=== PATIENT | male | born 1995 | race Caucasian/White ===

== ENCOUNTER 2017-08-15 14:37 | Emergency (ER) | payer BC, OTHER ==
[~2017-08-15] VITALS: Ht 182.9 cm; Wt 76.2 kg
[2017-08-15] MEDS ORDERED: KETOROLAC 30 MG/ML VIAL IVP STA (14:44)
[2017-08-15] MEDS ORDERED: NS IV 1000 ML 1,000 ML IV SCH (14:44)
[2017-08-15] MEDS ORDERED: ONDANSETRON 4 MG/2 ML (SDV) Z0FRAN IVP ONE (14:45)
[2017-08-15 14:55] LABS: BASOPHILS # (AUTO) 0.1 10^3/uL (0.0-0.1); BASOPHILS % (AUTO) 0 % (0-10); EOSINOPHILS # (AUTO) 0.3 10^3/uL (0.0-0.3); EOSINOPHILS % (AUTO) 2 % (0-10); HEMATOCRIT 44 % (40-54); HEMOGLOBIN 15.4 G/DL (13.3-17.7); LYMPHOCYTES # (AUTO) 2.5 X 10^3 (1.0-4.0); LYMPHOCYTES % (AUTO) 20 % (12-44); MEAN CORPUSCULAR HEMOGLOBIN 30 PG (25-34); MEAN CORPUSCULAR HGB CONC 35 G/DL (32-36); MEAN CORPUSCULAR VOLUME 85 FL (80-99); MEAN PLATELET VOLUME 10.9 FL (7.4-10.4); MONOCYTES % (AUTO) 8 % (0-12); NEUTROPHILS # (AUTO) 8.6 X 10^3 (1.8-7.8); NEUTROPHILS % (AUTO) 70 % (42-75); PLATELET COUNT 205 10^3/uL (130-400); RED BLOOD COUNT 5.18 10^6/uL (4.35-5.85); RED CELL DISTRIBUTION WIDTH 12.7 % (10.0-14.5); WHITE BLOOD COUNT 12.4 10^3/uL (4.3-11.0)
[2017-08-15] MEDS ORDERED: morphine INJ 10 MG/ML 1ML (SYR OR VIAL) IVP STA (15:04)
[2017-08-15 15:15] LABS: ALANINE AMINOTRANSFERASE 23 U/L (0-55); ALBUMIN 4.6 GM/DL (3.2-4.5); ALKALINE PHOSPHATASE 88 U/L (40-136); BILIRUBIN,TOTAL 0.7 MG/DL (0.1-1.0); BUN/CREATININE RATIO 16; CALCIUM 9.9 MG/DL (8.5-10.1); CARBON DIOXIDE 26 MMOL/L (21-32); CHLORIDE 103 MMOL/L (98-107); CREATININE SERUM 1.07 MG/DL (0.60-1.30); GFR ESTIMATED > 60; GLUCOSE 112 MG/DL (70-105); POTASSIUM 4.3 MMOL/L (3.6-5.0); SODIUM 138 MMOL/L (135-145); TOTAL PROTEIN 7.2 GM/DL (6.4-8.2)
[2017-08-15] MEDS ORDERED: CATHETER FLUSH 10 ML SYR IV PRN (15:15)
[2017-08-15] MEDS ORDERED: IOHEXOL 350 MG/ML 100 ML (OMNIPAQUE 350) VIAL IV ONE (15:15)
[2017-08-15] MEDS ORDERED: NS 250 ML (IVPB) BAG IV ONE (15:15)
--- NOTE | 2017-08-15 15:33 | ED GU-Male ---
General Chief Complaint: Abdominal/GI Problems Stated Complaint: STOMACH PAIN/KIDNEY STONES Nursing Triage Note: AMB TO ROOM REPORTS FOR LAST 2 DAYS HAS HAS URINARY SYMPTOMS ONSET TODAY OF R LOWER ABD PAIN. Source: patient Exam Limitations: no limitations History of Present Illness Date Seen by Provider: Aug 15, 2017 Time Seen by Provider: 14:45 Initial Comments 22-year-old male patient presents to the emergency department with complaints of a 2 day onset of right lower quadrant pain and urinary hesitancy. Pain has progressively gotten worse over the last 2 days. Patient reports chills without known fever. Denies low back pain or hematuria. 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, single partner Modifying Factors: Worsens With Movement, Worsens With Palpation Allergies and Home Medications Allergies Coded Allergies: No Known Drug Allergies (Unverified , 08/15/17) Home Medications Ciprofloxacin HCl 500 Mg Tablet, 500 MG PO BID Prescribed by: BLANQUITA COOPER on 08/15/171909 Hydrocodone/Acetaminophen 1 Each Tablet, 1 EACH PO Q4H PRN for pain Prescribed by: BLANQUITA COOPER on 08/15/171926 Ondansetron 8 Mg Tab.rapdis, 8 MG PO Q6H PRN for NAUSEA/VOMITING-1ST LINE Prescribed by: BLANQUITA COOPER on 08/15/171909 Phenazopyridine HCl 200 Mg Tablet, 1 TAB PO Q8H PRN for SPASMS Prescribed by: BLANQUITA COOPER on 08/15/171909 Tamsulosin HCl 0.4 Mg Cap, 0.4 MG PO DAILY Prescribed by: BLANQUITA COOPER on 08/15/171909 Patient Home Medication List Home Medication List Reviewed: Yes Constitutional: chills, No fever EENTM: no symptoms reported Respiratory: no symptoms reported Cardiovascular: no symptoms reported Gastrointestinal: abdominal pain (RLQ), No constipation, No diarrhea, No melena , nausea, No vomiting Genitourinary: denies burning, denies dysuria, frequency, denies flank pain, denies hematuria, pain, other (hesitancy) Musculoskeletal: No back pain Skin: no symptoms reported Psychiatric/Neurological: No Symptoms Reported All Other Systemes Reviewed Negative Unless Noted: Yes (Negative excepted noted.) Past Jcekfen-Jziirj-Jqifby Hx Patient Social History Alcohol Use: Denies Use Recreational Drug Use: No Smoking Status: Never a Smoker Recent Foreign Travel: No Contact w/Someone Who Travel: No Recent Infectious Disease Expo: No Surgeries History of Surgeries: No Respiratory History of Respiratory Disorde: No Cardiovascular History of Cardiac Disorders: No Neurological History of Neurological Disord: No Genitourinary History of Genitourinary Disor: No Gastrointestinal History of Gastrointestinal Di: No Musculoskeletal History of Musculoskeletal Dis: No Endocrine History of Endocrine Disorders: No Reviewed Nursing Assessment Reviewed/Agree w Nursing PMH: Yes Family Medical History Significant Family History: No Pertinent Family Hx Physical Exam Vital Signs Vital Signs - First Documented 08/15/17 08/15/17 14:40 19:49 Temp 98.7 Pulse 60 Resp 18 B/P (MAP) 132/69 (90) Pulse Ox 99 O2 Delivery Room Air Capillary Refill : Less Than 3 Seconds General Appearance: WD/WN, no apparent distress HEENT: PERRL/EOMI, pharynx normal Neck: supple, normal inspection Cardiovascular: normal peripheral pulses, regular rate, rhythm, no edema, no murmur Respiratory: lungs clear, normal breath sounds, no respiratory distress, no accessory muscle use Gastrointestinal: normal bowel sounds, soft, no organomegaly, No distended, guarding (generalized involuntary guarding), No rebound, tenderness ( generalized tenderness) Back: normal inspection, no CVA tenderness, no vertebral tenderness Extremities: no pedal edema, normal capillary refill Neurologic/Psychiatric: alert, normal mood/affect, oriented x 3 Skin: normal color, warm/dry Progress/Results/Core Measures Suspected Sepsis Recent Fever Within 48 Hours: No Infection Criteria Present: None New/Unexplained Altered Menta: No Sepsis Screen: No Definite Risk Sepsis Diagnosis: SIRS Temperature:98.7 Pulse: 60 Respiratory Rate: 18 Laboratory Tests 08/15/17 14:45: White Blood Count 12.4H Blood Pressure 132 /69 Mean: 90 Laboratory Tests 08/15/17 14:45: Creatinine 1.07, Platelet Count 205, Total Bilirubin 0.7 Results/Orders Lab Results Laboratory Tests Test 08/15/17 14:45 08/15/17 16:01 08/15/17 16:05 Range/Units White Blood Count 12.4 H 4.3-11.0 10^3/uL Red Blood Count 5.18 4.35-5.85 10^6/uL Hemoglobin 15.4 13.3-17.7 G/DL Hematocrit 44 40-54 % Mean Corpuscular Volume 85 80-99 FL Mean Corpuscular Hemoglobin 30 25-34 PG Mean Corpuscular Hemoglobin Concent 35 32-36 G/DL Red Cell Distribution Width 12.7 10.0-14.5 % Platelet Count 205 130-400 10^3/uL Mean Platelet Volume 10.9 H 7.4-10.4 FL Neutrophils (%) (Auto) 70 42-75 % Lymphocytes (%) (Auto) 20 12-44 % Monocytes (%) (Auto) 8 0-12 % Eosinophils (%) (Auto) 2 0-10 % Basophils (%) (Auto) 0 0-10 % Neutrophils # (Auto) 8.6 H 1.8-7.8 X 10^3 Lymphocytes # (Auto) 2.5 1.0-4.0 X 10^3 Monocytes # (Auto) 1.0 0.0-1.0 X 10^3 Eosinophils # (Auto) 0.3 0.0-0.3 10^3/uL Basophils # (Auto) 0.1 0.0-0.1 10^3/uL Sodium Level 138 135-145 MMOL/L Potassium Level 4.3 3.6-5.0 MMOL/L Chloride Level 103 98-107 MMOL/L Carbon Dioxide Level 26 21-32 MMOL/L Anion Gap 9 5-14 MMOL/L Blood Urea Nitrogen 17 7-18 MG/DL Creatinine 1.07 0.60-1.30 MG/DL Estimat Glomerular Filtration Rate > 60 BUN/Creatinine Ratio 16 Glucose Level 112 H 70-105 MG/DL Calcium Level 9.9 8.5-10.1 MG/DL Total Bilirubin 0.7 0.1-1.0 MG/DL Aspartate Amino Transf (AST/SGOT) 19 5-34 U/L Alanine Aminotransferase (ALT/SGPT) 23 0-55 U/L Alkaline Phosphatase 88 40-136 U/L C-Reactive Protein High Sensitivity 1.29 H 0.00-0.50 MG/DL Total Protein 7.2 6.4-8.2 GM/DL Albumin 4.6 H 3.2-4.5 GM/DL Monoscreen NEGATIVE NEGATIVE Urine Color YELLOW Urine Clarity SLIGHTLY CLOUDY Urine pH 7 5-9 Urine Specific [place] 1.010 L 1.016-1.022 Urine Protein 2+ H NEGATIVE Urine Glucose (UA) NEGATIVE NEGATIVE Urine Ketones 2+ H NEGATIVE Urine Nitrite NEGATIVE NEGATIVE Urine Bilirubin NEGATIVE NEGATIVE Urine Urobilinogen 1 NORMAL MG/DL Urine Leukocyte Esterase 1+ H NEGATIVE Urine RBC (Auto) 3+ H NEGATIVE Urine RBC 5-10 H /HPF Urine WBC RARE /HPF Urine Squamous Epithelial Cells NONE /HPF Urine Crystals NONE /LPF Urine Bacteria NEGATIVE /HPF Urine Casts NONE /LPF Urine Mucus LARGE H /LPF Urine Culture Indicated NO Urine Opiates Screen NEGATIVE NEGATIVE Urine Oxycodone Screen NEGATIVE NEGATIVE Urine Methadone Screen NEGATIVE NEGATIVE Urine Propoxyphene Screen NEGATIVE NEGATIVE Urine Barbiturates Screen NEGATIVE NEGATIVE Ur Tricyclic Antidepressants Screen NEGATIVE NEGATIVE Urine Phencyclidine Screen NEGATIVE NEGATIVE Urine Amphetamines Screen NEGATIVE NEGATIVE Urine Methamphetamines Screen NEGATIVE NEGATIVE Urine Benzodiazepines Screen NEGATIVE NEGATIVE Urine Cocaine Screen NEGATIVE NEGATIVE Urine Cannabinoids Screen POSITIVE H NEGATIVE Serum Alcohol < 10 <10 MG/DL My Orders Orders - BLANQUITA COOPER PA Ua Culture If Indicated (08/15/17 14:42) Cbc With Automated Diff (08/15/17 14:44) Comprehensive Metabolic Panel (08/15/17 14:44) Hs C Reactive Protein (08/15/17 14:44) Ua Culture If Indicated (08/15/17 14:44) Saline Lock/Iv-Start (08/15/17 14:44) Ns Iv 1000 Ml (Sodium Chloride 0.9%) (08/15/17 14:44) Ondansetron Injection (Zofran Injectio (08/15/17 14:45) Ketorolac Injection (Toradol Injection) (08/15/17 14:44) Morphine Injection (Morphine Injection (08/15/17 15:04) Iohexol Injection (Omnipaque 350 Mg/Ml 1 (08/15/17 15:15) Sodium Chloride Flush (Catheter Flush Sy (08/15/17 15:15) Ns (Ivpb) (Sodium Chloride 0.9%) (08/15/17 15:15) Pharmacy Communication (Pharmacy Communi (08/15/17 15:06) Ct Abd/Pelv W (Appendicitis) (08/15/17 15:45) Alcohol (08/15/17 16:02) Drug Screen Stat (Urine) (08/15/17 16:02) Hepatitis Panel Acute (08/15/17 17:00) Monotest (08/15/17 17:00) Us Abdomen Complete 90112 (08/15/17 17:00) Rx-Hydrocodone/Apap 5-325 Mg (Rx-Vicodin (08/15/17 19:45) Medications Given in ED Current Medications Medications Dose Ordered Sig/Yvonne Route Start Time Stop Time Status Last Admin Dose Admin Acetaminophen/ Hydrocodone Bitart 1 ea Q4H PRN PO 08/15/17 19:45 08/15/17 19:45 DC 08/15/17 19:44 1 EA Iohexol 100 ml ONCE ONCE IV 08/15/17 15:15 08/15/17 15:16 DC 08/15/17 15:58 100 ML Ondansetron HCl 4 mg ONCE ONCE IVP 08/15/17 14:45 08/15/17 14:46 DC 08/15/17 14:53 4 MG Sodium Chloride 10 ml NEEDED PRN IV 08/15/17 15:15 08/15/17 19:45 DC 08/15/17 15:58 10 ML Sodium Chloride 250 ml ONCE ONCE IV 08/15/17 15:15 08/15/17 15:16 DC 08/15/17 15:58 80 ML Vital Signs/I&O Vital Sign - Last 12Hours 08/15/17 08/15/17 14:40 19:49 Temp 98.7 98.2 Pulse 60 68 Resp 18 18 B/P (MAP) 132/69 (90) 137/73 (90) Pulse Ox 99 100 O2 Delivery Room Air Intake and Output 08/16/17 00:00 Intake Total 1000 ml Balance 1000 ml Capillary Refill : Less Than 3 Seconds Blood Pressure Mean: 90 Diagnostic Imaging Diagonstic Imaging: CT Plain Films/CT/US/NM/MRI: abdomen, pelvis Comments FINDINGS: The visualized lung bases are clear. The liver demonstrates an appearance suggestive of periportal edema. There is no significant biliary dilatation evident. Consider correlation with LFTs. The spleen demonstrates no focal abnormality. Pancreas is unremarkable. There is no adrenal mass. Kidneys enhance normally and appear nonobstructed. The ureters appear normal in caliber. There is a nonobstructive 4 mm calculus within the upper calyx of the right kidney. There is no evidence of free fluid. There is no abscess. No pathologically enlarged lymph nodes are evident. Urinary bladder unremarkable. The small and large bowel are normal in caliber without evidence of obstruction. The appendix is well visualized and appears normal. There are, however, multiple small prominent lymph nodes within the right lower quadrant. There is no free fluid or abscess. IMPRESSION: 1. Multiple small mesenteric lymph nodes are present in the right lower quadrant which may reflect mesenteric adenitis. The appendix, itself, appears normal. 2. Abnormal appearance of the liver with findings of periportal edema. Consider correlation with LFTs. Right upper quadrant ultrasound may also be useful. There is no definitive stone within the gallbladder or evidence of definitive biliary dilatation. Dictated by: Dictated on workstation # [id number] Reviewed: Reviewed by Me (radiology report reviewed by me) Diagonstic Imaging: Ultrasound Plain Films/CT/US/NM/MRI: abdomen Comments FINDINGS: LIVER: The visualized portions of the liver is normal in shape and echogenicity without focal lesions. The previously seen appearance of periportal edema is not well visualized on this ultrasound exam and is better seen on the comparison CT scan. The liver measures 14.4 cm in craniocaudal dimension. GALLBLADDER: The gallbladder is normal in size, shape and wall thickness without stones, sludge, or masses. There is no sonographic Curtis sign. BILE DUCTS: There is no evidence of intra- or extra-hepatic biliary dilatation. The common duct measured a maximum of 3.7 mm in diameter. PANCREAS: Portions of the pancreatic head are obscured by overlying bowel gas. Otherwise, the remaining visualized portions of the pancreas has normal size, shape, and echogenicity without focal lesions. SPLEEN: The spleen has normal echogenicity and configuration. The spleen measures 11.7 cm. ABDOMINAL VASCULATURE: Visualized portions of the abdominal aorta demonstrate smooth contours and are normal in caliber. KIDNEYS: Both kidneys are normal in size, shape, echogenicity and cortical thickness without hydronephrosis, stones, or focal lesions with right and left kidneys measuring 9.6 cm and 9.3 cm in their craniocaudal dimensions, respectively. There is no abdominal ascites. IMPRESSION : 1: Incomplete visualization of the pancreas. If there is clinical concern for pancreatic abnormality, serology tests may better evaluate. 2: The areas concerning for periportal edema are not seen on this ultrasound exam and is better seen on comparison CT scan. The liver is unremarkable as visualized on this exam. Liver function serology tests may help better evaluate. 3: The remainder of the abdominal ultrasound is unremarkable. Dictated by: Dictated on workstation # [id number] Reviewed: Reviewed by Me (radiology report reviewed by me) Departure Communication (Admissions) Progress Notes Patient seen and evaluated. Initial labs obtained and CT abdomen/pelvis with contrast ordered as patient shows generalized abdominal tenderness with greatest tenderness in the right lower quadrant. Patient however was concerned about missing a kidney stone on the CT scan with contrast. Patient is negative for CVA tenderness and is noted to have generalized abdominal tenderness. History is not classic for kidney stone. I discussed this with the patient. Patient is agreeable to CT abdomen and pelvis with contrast. PeriPortal edema noted on CT scan without appreciable stones of the gallbladder. 1 stone noted in the right upper pole of the kidney without ureteral stone. Patient reports feeling much better at this time. I have discussed findings of the diagnostic study and laboratory findings with the patient as well as recommendations for abdominal ultrasound. We'll proceed with the ultrasound at this time. 1855 all laboratory findings and diagnostic study findings discussed with Dr. John. Dr. John recommends discharge to home with follow-up as an outpatient with his PCP for recheck and possible need for repeat CT scan as an outpatient. Reports findings on CT scan most likely related to a viral infection. Also plan on obtaining an acute hepatitis panel to rule out this as a cause of periportal edema. Ultrasound findings and recommendations by Dr. John discussed with the patient. Patient reports being asymptomatic at this time. Abdomen is soft, nontender, positive bowel sounds, flat. Plan for discharge to home with follow-up as an outpatient with his PCP or [facility] Patient to call for appointment time. All return precautions were discussed with the patient as described in the discharge instructions of this report. Patient verbalizes understanding and agrees with the treatment plan. Patient case discussed with Alexis Salas, he agrees with the plan of care. Impression Impression: Primary Impression: Mesenteric adenitis Additional Impressions: periportal edema Hematuria Qualified Codes: R31.9 - Hematuria, unspecified Disposition: HOME, SELF-CARE Condition: Improved Departure-Patient Inst. Decision time for Depature: 19:05 Referrals: NO,LOCAL PHYSICIAN (PCP) Primary Care Physician CARMENZA CINTRON MD Patient Instructions: Acute Abdomen (Belly Pain), Adult (DC), Mesenteric Lymphadenitis (DC) Add. Discharge Instructions: All discharge instructions reviewed with patient and/or family. Voiced understanding. Medications as instructed. Ibuprofen 800 mg by mouth every 8 hours as needed for pain. Drink plenty of fluids. [place], low-fat diet. No alcohol or tylenol. Follow-up with your family practitioner this week for recheck as an outpatient and repeat labs/urinalysis. Follow-up with Dr. Cintron if you continue to have blood in your urine. Return to the emergency department for worsened symptoms, fever, vomiting, vomiting blood, rectal bleeding, abdominal swelling, inability to urinate, or any other concerns. Scripts Hydrocodone/Acetaminophen (Hydrocodone-Acetamin 5-325 mg) 1 Each Tablet 1 EACH PO Q4H Y for pain, #10 TAB 0 Refills Prov: BLANQUITA COOPER 08/15/17 Tamsulosin HCl (Flomax) 0.4 Mg Cap 0.4 MG PO DAILY, #10 CAP 0 Refills Prov: BLANQUITA COOPER 08/15/17 Ciprofloxacin HCl (Ciprofloxacin HCl) 500 Mg Tablet 500 MG PO BID, #14 TAB 0 Refills Prov: BLANQUITA COOPER 08/15/17 Phenazopyridine HCl (Pyridium) 200 Mg Tablet 1 TAB PO Q8H Y for SPASMS, #14 TAB 0 Refills Prov: BLANQUITA COOPER 08/15/17 Ondansetron (Ondansetron Odt) 8 Mg Tab.rapdis 8 MG PO Q6H Y for NAUSEA/VOMITING-1ST LINE, #10 TAB 0 Refills Prov: BLANQUITA COOPER 08/15/17 Work/School Note: Local [employer]ing BLANQUITA COOPER Aug 15, 2017 15:33
[2017-08-15 16:13] LABS: BILIRUBIN,URINE NEGATIVE (NEGATIVE); CLARITY,URINE SLIGHTLY CLOUDY; COLOR,URINE YELLOW; GLUCOSE, URINE (UA) NEGATIVE (NEGATIVE); KETONES,URINE 2+ (NEGATIVE); LEUKOCYTE ESTERASE ,URINE 1+ (NEGATIVE); NITRITE,URINE NEGATIVE (NEGATIVE); PH,URINE 7 (5-9); PROTEIN,URINE 2+ (NEGATIVE); UROBILINOGEN,URINE 1 MG/DL (NORMAL)
--- NOTE | 2017-08-15 16:15 | Diagnostic Imaging Report ---
PROCEDURE: CT abdomen and pelvis with contrast, rule out appendicitis. TECHNIQUE: Multiple contiguous axial images were obtained through the abdomen and pelvis after the administration of intravenous contrast. INDICATION: Elevated white blood cell count with right lower quadrant pain. Reported hematuria. FINDINGS: The visualized lung bases are clear. The liver demonstrates an appearance suggestive of periportal edema. There is no significant biliary dilatation evident. Consider correlation with LFTs. The spleen demonstrates no focal abnormality. Pancreas is unremarkable. There is no adrenal mass. Kidneys enhance normally and appear nonobstructed. The ureters appear normal in caliber. There is a nonobstructive 4 mm calculus within the upper calyx of the right kidney. There is no evidence of free fluid. There is no abscess. No pathologically enlarged lymph nodes are evident. Urinary bladder unremarkable. The small and large bowel are normal in caliber without evidence of obstruction. The appendix is well visualized and appears normal. There are, however, multiple small prominent lymph nodes within the right lower quadrant. There is no free fluid or abscess. IMPRESSION: 1. Multiple small mesenteric lymph nodes are present in the right lower quadrant which may reflect mesenteric adenitis. The appendix, itself, appears normal. 2. Abnormal appearance of the liver with findings of periportal edema. Consider correlation with LFTs. Right upper quadrant ultrasound may also be useful. There is no definitive stone within the gallbladder or evidence of definitive biliary dilatation. Dictated by: Dictated on workstation # [id number]
[2017-08-15 16:27] LABS: AMPHETAMINE SCREEN, URINE NEGATIVE (NEGATIVE); BENZODIAZEPINES SCREEN URINE NEGATIVE (NEGATIVE); CANNABINOID SCREEN, URINE POSITIVE (NEGATIVE); COCAINE SCREEN URINE NEGATIVE (NEGATIVE)
[2017-08-15 16:28] LABS: BARBITURATE SCREEN URINE NEGATIVE (NEGATIVE); METHADONE STAT NEGATIVE (NEGATIVE); METHAMPHETAMINE SCREEN URINE S NEGATIVE (NEGATIVE); OPIATE SCREEN URINE NEGATIVE (NEGATIVE); OXYCODONE STAT NEGATIVE (NEGATIVE); PROPOXYPHENE STAT NEGATIVE (NEGATIVE); TRICYCLIC ANTIDEPRESSANTS SCRE NEGATIVE (NEGATIVE)
[2017-08-15 16:30] LABS: BACTERIA,URINE NEGATIVE /HPF; WBC,URINE RARE /HPF
--- NOTE | 2017-08-15 18:01 | Diagnostic Imaging Report ---
CLINICAL INDICATION: Patient with abdominal pain. COMPARISON: CT scan of the abdomen and pelvis with contrast dated 08/15/2017. FINDINGS: LIVER: The visualized portions of the liver is normal in shape and echogenicity without focal lesions. The previously seen appearance of periportal edema is not well visualized on this ultrasound exam and is better seen on the comparison CT scan. The liver measures 14.4 cm in craniocaudal dimension. GALLBLADDER: The gallbladder is normal in size, shape and wall thickness without stones, sludge, or masses. There is no sonographic Curtis sign. BILE DUCTS: There is no evidence of intra- or extra-hepatic biliary dilatation. The common duct measured a maximum of 3.7 mm in diameter. PANCREAS: Portions of the pancreatic head are obscured by overlying bowel gas. Otherwise, the remaining visualized portions of the pancreas has normal size, shape, and echogenicity without focal lesions. SPLEEN: The spleen has normal echogenicity and configuration. The spleen measures 11.7 cm. ABDOMINAL VASCULATURE: Visualized portions of the abdominal aorta demonstrate smooth contours and are normal in caliber. KIDNEYS: Both kidneys are normal in size, shape, echogenicity and cortical thickness without hydronephrosis, stones, or focal lesions with right and left kidneys measuring 9.6 cm and 9.3 cm in their craniocaudal dimensions, respectively. There is no abdominal ascites. IMPRESSION: 1: Incomplete visualization of the pancreas. If there is clinical concern for pancreatic abnormality, serology tests may better evaluate. 2: The areas concerning for periportal edema are not seen on this ultrasound exam and is better seen on comparison CT scan. The liver is unremarkable as visualized on this exam. Liver function serology tests may help better evaluate. 3: The remainder of the abdominal ultrasound is unremarkable. Dictated by: Dictated on workstation # [id number]
[2017-08-15] MEDS ORDERED: PHEN-640 PO (19:10)
[2017-08-15] MEDS ORDERED: ONDA8TAB13 PO (19:10)
[2017-08-15] MEDS ORDERED: TAMS0.4C98 PO (19:10)
[2017-08-15] MEDS ORDERED: CIPR500T4 PO (19:10)
[2017-08-15] MEDS ORDERED: HYDR-3812 PO (19:27)
[2017-08-15] MEDS ORDERED: RX-HYDROCODONE/APAP 5/325 MG #4 TAB PK PO PRN (19:45)
[2017-08-15 19:49] VITALS: BP 137/73
[2017-08-17 16:28] LABS: HEPATITIS C ANTIBODY C Non-Reactive (Non-Reactive)
== END 2017-08-15 19:44 | disposition home or self-care (01) ==
LOC: ER 14:39
DX: I88.0 Nonspecific mesenteric lymphadenitis (principal); R60.0 Localized edema; R31.9 Hematuria, unspecified
CPT/HCPCS: 36415; 74177; 76700; 80053; 80074; 80306; 80320; 81000; 85025; 86141; 86308

== ENCOUNTER 2019-04-22 02:07 | Emergency (ER) | payer BC ==
[~2019-04-22] VITALS: Ht 182.8 cm; Wt 86.4 kg
[~2019-04-22 02:07] MED LIST: CIPR500T4 PO; HYDR-3812 PO; ONDA8TAB13 PO; PHEN-640 PO; TAMS0.4C98 PO
[2019-04-22 02:44] LABS: BASOPHILS % (AUTO) 0 % (0-10); EOSINOPHILS # (AUTO) 0.1 10^3/uL (0.0-0.3); EOSINOPHILS % (AUTO) 1 % (0-10); HEMATOCRIT 40 % (40-54); HEMOGLOBIN 13.8 G/DL (13.3-17.7); LYMPHOCYTES # (AUTO) 1.4 X 10^3 (1.0-4.0); LYMPHOCYTES % (AUTO) 8 % (12-44); MEAN CORPUSCULAR HEMOGLOBIN 29 PG (25-34); MEAN CORPUSCULAR HGB CONC 35 G/DL (32-36); MEAN CORPUSCULAR VOLUME 84 FL (80-99); MEAN PLATELET VOLUME 10.2 FL (7.4-10.4); MONOCYTES # (AUTO) 0.9 X 10^3 (0.0-1.0); MONOCYTES % (AUTO) 5 % (0-12); NEUTROPHILS # (AUTO) 15.6 X 10^3 (1.8-7.8); NEUTROPHILS % (AUTO) 87 % (42-75); PLATELET COUNT 223 10^3/uL (130-400); RED CELL DISTRIBUTION WIDTH 12.7 % (10.0-14.5)
[2019-04-22 02:46] LABS: BILIRUBIN,URINE NEGATIVE (NEGATIVE); CLARITY,URINE CLEAR; COLOR,URINE YELLOW; GLUCOSE, URINE (UA) NEGATIVE (NEGATIVE); KETONES,URINE TRACE (NEGATIVE); LEUKOCYTE ESTERASE ,URINE NEGATIVE (NEGATIVE); NITRITE,URINE NEGATIVE (NEGATIVE); PROTEIN,URINE NEGATIVE (NEGATIVE)
[2019-04-22 03:00] LABS: AMPHETAMINE SCREEN, URINE NEGATIVE (NEGATIVE); BACTERIA,URINE FEW /HPF; BARBITURATE SCREEN URINE NEGATIVE (NEGATIVE); BENZODIAZEPINES SCREEN URINE NEGATIVE (NEGATIVE); CANNABINOID SCREEN, URINE POSITIVE (NEGATIVE); COCAINE SCREEN URINE NEGATIVE (NEGATIVE); METHADONE STAT NEGATIVE (NEGATIVE); METHAMPHETAMINE SCREEN URINE S NEGATIVE (NEGATIVE); OPIATE SCREEN URINE NEGATIVE (NEGATIVE); OXYCODONE STAT NEGATIVE (NEGATIVE); PROPOXYPHENE STAT NEGATIVE (NEGATIVE); SQUAMOUS EPITHELIAL CELL,UR 0-2 /HPF; TRICYCLIC ANTIDEPRESSANTS SCRE NEGATIVE (NEGATIVE)
[2019-04-22 03:05] LABS: ALANINE AMINOTRANSFERASE 26 U/L (0-55); ALBUMIN 4.9 GM/DL (3.2-4.5); ALKALINE PHOSPHATASE 71 U/L (40-136); AMYLASE 61 U/L (25-125); BILIRUBIN,TOTAL 0.6 MG/DL (0.1-1.0); BUN/CREATININE RATIO 14; CALCIUM 9.7 MG/DL (8.5-10.1); CARBON DIOXIDE 23 MMOL/L (21-32); CHLORIDE 101 MMOL/L (98-107); CREATININE SERUM 1.23 MG/DL (0.60-1.30); GFR ESTIMATED > 60; GLUCOSE 108 MG/DL (70-105); LIPASE 15 U/L (8-78); SODIUM 138 MMOL/L (135-145); TOTAL PROTEIN 7.1 GM/DL (6.4-8.2)
[2019-04-22] MEDS ORDERED: LACTATED RINGERS 1,000 ML IV ONE (03:41)
[2019-04-22] MEDS ORDERED: KETOROLAC 30 MG/ML VIAL IVP STA (03:41)
[2019-04-22] MEDS ORDERED: TAMSULOSIN 0.4 MG (FLOMAX) CAP PO SCH (03:45)
[2019-04-22] MEDS ORDERED: ONDA4TAB11 PO (03:48)
[2019-04-22] MEDS ORDERED: TAMS0.4C98 PO (03:48)
[2019-04-22] MEDS ORDERED: CIPR-225 PO (03:48)
[2019-04-22] MEDS ORDERED: HYDR-87 PO (03:48)
--- NOTE | 2019-04-22 03:48 | ED Abdominal Pain ---
General Chief Complaint: Abdominal/GI Problems Stated Complaint: ABD PAIN Nursing Triage Note: URINARY HESITANCY X2 WEEKS, RIGHT SIDED ABDOMINAL PAIN TONIGHT. Sepsis Screen: No Definite Risk Source of Information: Patient History of Present Illness Date Seen by Provider: Apr 22, 2019 Time Seen by Provider: 02:20 Initial Comments PT ARRIVES VIA POV FROM HOME STATES HE HAS BEEN HAVING DIFFICULTY URINATING FOR THE LAST FEW WEEKS C/O URGENCY, FREQUENCY, SMALL AMOUNTS, HAS TO STRAIN TO URINATE OCCASIONALLY HAS PAIN IN RIGHT LOWER BACK WHEN HE HAS TO STRAIN TO URINATE NO ACTUAL PAIN /BURNING ON URINATION NO FEVER TONIGHT, HE BEGAN HAVING PRESSURE IN RLQ. STATES HE COULDN'T GO TO SLEEP DUE TO PAIN HAD NAUSEA AND VOMITED X 1 A COUPLE OF HOURS AGO HAS NOT TAKEN ANYTHING FOR SYMPTOMS HAS NOT SOUGHT CARE UNTIL TODAY HAD SIMILAR IN THE PAST, AND WAS SEEN HERE 08/15/17 WORK UP SHOWED POSSIBLE MESENTERIC ADENITIS, HAD BLOOD IN URINE, AND WAS TOLD HE MIGHT HAVE A KIDNEY STONE, BUT CT SCAN DID NOT SHOW A STONE. DID NOT FOLLOW UP WITH UROLOGIST AT THAT TIME PT IS [employer] ST[employer] FROM [place], [place] Allergies and Home Medications Allergies Coded Allergies: No Known Drug Allergies (Unverified , 08/15/17) Home Medications Ciprofloxacin HCl 500 Mg Tablet, 500 MG PO BID Prescribed by: ZULEYMA WALTERS on 04/22/19347 Hydrocodone/Ibuprofen 1 Each Tablet, 1 EACH PO Q4H PRN for PAIN-MODERATE Prescribed by: ZULEYMA WALTERS on 04/22/19347 Ondansetron 4 Mg Tab.rapdis, 4 MG PO Q4H Prescribed by: ZULEYMA WALTERS on 04/22/19347 Tamsulosin HCl 0.4 Mg Cap, 0.4 MG PO DAILY Prescribed by: ZULEYMA WALTERS on 04/22/19347 Patient Home Medication List Home Medication List Reviewed: Yes Review of Systems Review of Systems Constitutional: no symptoms reported; No fever Respiratory: No Symptoms Reported Cardiovascular: No Symptoms Reported Gastrointestinal: See HPI, Abdominal Pain, Nausea, Vomiting Genitourinary: See HPI, Frequency, Flank Pain; Denies Hematuria; Urgency Musculoskeletal: see HPI, back pain Skin: no symptoms reported Psychiatric/Neurological: No Symptoms Reported Endocrine: No Symptoms Reported Hematologic/Lymphatic: No Symptoms Reported Past Ppiigbn-Cwwapz-Rtpejl Hx Patient Social History Alcohol Use: Regular Use Recreational Drug Use: Yes (DENIES, BUT UDS + FOR THC) Drug of Choice: DENIES, BUT UDS + FOR THC Smoking Status: Current Someday Smoker Type Used: Cigarettes 2nd Hand Smoke Exposure: No Recent Foreign Travel: No Contact w/Someone Who Travel: No Recent Infectious Disease Expo: No Recent Hopitalizations: No Physical Abuse: No Sexual Abuse: No Mistreated: No Fear: No Immunizations Up To Date Tetanus Booster (TDap): Unknown Seasonal Allergies Seasonal Allergies: No Past Medical History Surgeries: Yes Tonsillectomy Respiratory: No Cardiac: No Neurological: No Genitourinary: Yes Kidney Stones Gastrointestinal: No Musculoskeletal: No Endocrine: No HEENT: Yes (S/P TONSILLECTOMY) Tonsilitis Cancer: No Psychosocial: No Integumentary: No Blood Disorders: No Physical Exam Vital Signs Vital Signs - First Documented 04/22/19 02:13 Temp 36.8 Pulse 62 Resp 18 B/P (MAP) 158/97 (117) Pulse Ox 99 O2 Delivery Room Air Capillary Refill : Less Than 3 Seconds Height/Weight/BMI Height: 6'" Weight: 168lbs. oz. 76.178013xg; 25.00 BMI Method:Stated General Appearance: WD/WN, no apparent distress, other (WALKS UPRIGHT AND MOVES WITHOUT DIFFICULTY) Respiratory: normal breath sounds, no respiratory distress, no accessory muscle use Cardiovascular: regular rate, rhythm, no murmur Gastrointestinal: normal bowel sounds, soft, no organomegaly, no pulsatile mass; No distended, No guarding, No rebound; tenderness (MILD RLQ TENDERNESS); No hernia, No mass Extremities: normal inspection Back: no CVA tenderness Neurologic/Psychiatric: dehairer II-XII nml as tested, no motor/sensory deficits, alert, normal mood/affect, oriented x 3 Skin: normal color, warm/dry Progress/Results/Core Measures Results/Orders Lab Results Laboratory Tests Test 04/22/19 02:35 Range/Units White Blood Count 18.0 H 4.3-11.0 10^3/uL Red Blood Count 4.77 4.35-5.85 10^6/uL Hemoglobin 13.8 13.3-17.7 G/DL Hematocrit 40 40-54 % Mean Corpuscular Volume 84 80-99 FL Mean Corpuscular Hemoglobin 29 25-34 PG Mean Corpuscular Hemoglobin Concent 35 32-36 G/DL Red Cell Distribution Width 12.7 10.0-14.5 % Platelet Count 223 130-400 10^3/uL Mean Platelet Volume 10.2 7.4-10.4 FL Neutrophils (%) (Auto) 87 H 42-75 % Lymphocytes (%) (Auto) 8 L 12-44 % Monocytes (%) (Auto) 5 0-12 % Eosinophils (%) (Auto) 1 0-10 % Basophils (%) (Auto) 0 0-10 % Neutrophils # (Auto) 15.6 H 1.8-7.8 X 10^3 Lymphocytes # (Auto) 1.4 1.0-4.0 X 10^3 Monocytes # (Auto) 0.9 0.0-1.0 X 10^3 Eosinophils # (Auto) 0.1 0.0-0.3 10^3/uL Basophils # (Auto) 0.0 0.0-0.1 10^3/uL Urine Color YELLOW Urine Clarity CLEAR Urine pH 6.0 5-9 Urine Specific [place] >=1.030 1.016-1.022 Urine Protein NEGATIVE NEGATIVE Urine Glucose (UA) NEGATIVE NEGATIVE Urine Ketones TRACE H NEGATIVE Urine Nitrite NEGATIVE NEGATIVE Urine Bilirubin NEGATIVE NEGATIVE Urine Urobilinogen 0.2 < = 1.0 MG/DL Urine Leukocyte Esterase NEGATIVE NEGATIVE Urine RBC (Auto) 2+ H NEGATIVE Urine RBC 10-25 H /HPF Urine WBC NONE /HPF Urine Squamous Epithelial Cells 0-2 /HPF Urine Crystals NONE /LPF Urine Bacteria FEW H /HPF Urine Casts PRESENT /LPF Urine Hyaline Casts 2-5 H /LPF Urine Mucus MODERATE H /LPF Urine Culture Indicated NO Sodium Level 138 135-145 MMOL/L Potassium Level 4.0 3.6-5.0 MMOL/L Chloride Level 101 98-107 MMOL/L Carbon Dioxide Level 23 21-32 MMOL/L Anion Gap 14 5-14 MMOL/L Blood Urea Nitrogen 17 7-18 MG/DL Creatinine 1.23 0.60-1.30 MG/DL Estimat Glomerular Filtration Rate > 60 BUN/Creatinine Ratio 14 Glucose Level 108 H 70-105 MG/DL Calcium Level 9.7 8.5-10.1 MG/DL Corrected Calcium 8.5-10.1 MG/DL Total Bilirubin 0.6 0.1-1.0 MG/DL Aspartate Amino Transf (AST/SGOT) 18 5-34 U/L Alanine Aminotransferase (ALT/SGPT) 26 0-55 U/L Alkaline Phosphatase 71 40-136 U/L Total Protein 7.1 6.4-8.2 GM/DL Albumin 4.9 H 3.2-4.5 GM/DL Amylase Level 61 25-125 U/L Lipase 15 8-78 U/L Urine Opiates Screen NEGATIVE NEGATIVE Urine Oxycodone Screen NEGATIVE NEGATIVE Urine Methadone Screen NEGATIVE NEGATIVE Urine Propoxyphene Screen NEGATIVE NEGATIVE Urine Barbiturates Screen NEGATIVE NEGATIVE Ur Tricyclic Antidepressants Screen NEGATIVE NEGATIVE Urine Phencyclidine Screen NEGATIVE NEGATIVE Urine Amphetamines Screen NEGATIVE NEGATIVE Urine Methamphetamines Screen NEGATIVE NEGATIVE Urine Benzodiazepines Screen NEGATIVE NEGATIVE Urine Cocaine Screen NEGATIVE NEGATIVE Urine Cannabinoids Screen POSITIVE H NEGATIVE My Orders Orders - ZULEYMA WALTERS DO Amylase (04/22/19 02:19) Cbc With Automated Diff (04/22/19 02:19) Comprehensive Metabolic Panel (04/22/19 02:19) Drug Screen Stat (Urine) (04/22/19 02:19) Lipase (04/22/19 02:19) Ua Culture If Indicated (04/22/19 02:19) Ed Iv/Invasive Line Start (04/22/19 02:19) Ct Abd/Pelvis Wo(Kidney Stone) (04/22/19 02:19) Acute Abd Series (04/22/19 02:19) Neis Bertin Dna Urine Test (04/22/19 02:19) Chlamydia Trachomatis Urine (04/22/19 02:19) Manual Differential (04/22/19 02:35) Ed Iv/Invasive Line Start (04/22/19 03:41) Lactated Ringers (Lr 1000 Ml Iv Solution (04/22/19 03:41) Ketorolac Injection (Toradol Injection) (04/22/19 03:41) Tamsulosin Capsule (Flomax Capsule) (04/22/19 03:45) Medications Given in ED Current Medications Medications Dose Ordered Sig/Yvonne Route Start Time Stop Time Status Last Admin Dose Admin Lactated Ringer's 1,000 ml @ 0 mls/hr Q0M ONCE IV 04/22/19 03:41 04/22/19 03:42 DC 04/22/19 03:51 0 MLS/HR Vital Signs/I&O 04/22/19 02:13 Temp 36.8 Pulse 62 Resp 18 B/P (MAP) 158/97 (117) Pulse Ox 99 O2 Delivery Room Air Blood Pressure Mean: 117 POS Progress Progress Note : Progress Note SLEPT SOUNDLY FOR REMAINDER OF ER STAY NO COMPLAINTS OF PAIN FOR REMAINDER OF ER STAY Diagnostic Imaging Comments ABDOMEN XRAYS--NO ACUTE PROCESS, PENDING RADIOLOGIST REVIEW CT ABDOMEN/PELVIS--3-4 MM CALCULUS IN RIGHT DISTAL URETER, 1 CM FROM UVJ, WITH MODERATE RIGHT HYDRONEPHROSIS/HYDROURETER. PER [facility] VIA FAX AT [id number] Reviewed: Reviewed by Me Departure Impression Primary Impression: Right distal ureteral calculus Disposition: HOME, SELF-CARE Condition: Improved Departure-Patient Inst. Referrals: NO,LOCAL PHYSICIAN (PCP) Primary Care Physician GIOVANNA AGUILAR MD, ELIAS A MD Patient Instructions: How to Strain Your Urine, Kidney Stones (DC) Add. Discharge Instructions: STRAIN ALL URINE--RETURN ANY STONES TO DR'S OFFICE LOTS OF CLEAR LIQUIDS FOLLOW UP WITH DR. CINTRON, UROLOGIST, ON THURSDAY FOR FURTHER CARE RETURN TO ER IF SYMPTOMS WORSEN All discharge instructions reviewed with patient and/or family. Voiced understanding. Scripts Ciprofloxacin HCl (Cipro) 500 Mg Tablet 500 MG PO BID, #20 TAB Prov: ZULEYMA WALTERS DO 04/22/19 Ondansetron (Ondansetron Odt) 4 Mg Tab.rapdis 4 MG PO Q4H for Nausea/Vomiting, #10 TAB Prov: ZULEYMA WALTERS K DO 04/22/19 Hydrocodone/Ibuprofen (Hydrocodone-Ibuprofen 7.5-200) 1 Each Tablet 1 EACH PO Q4H PRN for PAIN-MODERATE for 3 Days, #15 TAB Prov: HUDSON WALTERSA K DO 04/22/19 Tamsulosin HCl (Flomax) 0.4 Mg Cap 0.4 MG PO DAILY, #10 CAP Prov: HUDSON WALTERSA K DO 04/22/19 ZULEYMA WALTERS DO Apr 22, 2019 03:48 POS
[2019-04-22 04:31] VITALS: BP 122/75
[2019-04-22 05:07] LABS: LYMPHOCYTES % (MANUAL) 6 %; MONOCYTES % (MANUAL) 6 %; NEUTROPHILS % (MANUAL) 88 %
--- NOTE | 2019-04-22 07:33 | Diagnostic Imaging Report ---
INDICATION: Urinary hesitancy, pain. COMPARISON: CT dated 08/15/2017 TECHNIQUE: 3 radiographs of the abdomen dated 04/22/2019. FINDINGS: The cardiac silhouette is within normal limits in size. No significant pulmonary vascular congestion. The lungs are clear. No pleural effusion. No pneumothorax. No acute osseous abnormality within the chest. A 5 to 6 mm calcification is seen overlying the right pelvis. No additional suspicious calcifications overlying the renal shadows. Nonobstructive bowel gas pattern. No free air. No acute osseous abnormality. IMPRESSION: 5 to 6 mm calcification within the right lower pelvis may relate to a ureterolith. Recommend correlation with CT. No acute cardiopulmonary abnormality. Dictated by: Dictated on workstation # [id number]
--- NOTE | 2019-04-22 07:38 | Diagnostic Imaging Report ---
PROCEDURE: CT urinary tract, rule out kidney stone. TECHNIQUE: Multiple contiguous axial images were obtained through the abdomen and pelvis without the use of intravenous contrast. Auto Exposure Controls were utilized during the CT exam to meet ALARA standards for radiation dose reduction. INDICATION: Urinary hesitancy, abdominal pain COMPARISON: Radiographs from the same date as well as CT dated 08/15/2017 FINDINGS: The visualized lung bases are clear. The unenhanced liver, spleen, adrenal glands, gallbladder, and pancreas are unremarkable. 6 mm calculus is noted within the right ureterovesicular junction. This is resulting in moderate right hydroureteronephrosis. Additional 3 mm calcification is seen within the inferior pole of the right kidney. The right kidney is otherwise unremarkable. The left kidney and left ureter are unremarkable. No aneurysmal dilatation of the abdominal aorta. The appendix is unremarkable. The urinary bladder is predominantly decompressed, therefore not well evaluated. No bowel obstruction or pneumatosis. No pathologically enlarged lymph nodes. No significant free air or free fluid. No acute osseous abnormality. IMPRESSION: 0.6 cm calculus within the right ureterovesicular junction resulting in moderate right hydroureteronephrosis. Report was called/faxed to [facility] by makeda at 7:40 am. RODOLFO Romero, was also notified. Dictated by: Dictated on workstation # [id number]
== END 2019-04-22 04:35 | disposition home or self-care (01) ==
LOC: EDUNIT# 02:07 → ER 02:09
DX: N13.2 Hydronephrosis with renal and ureteral calculous obstruction (principal); F17.210 Nicotine dependence, cigarettes, uncomplicated; Z90.89 Acquired absence of other organs; Z87.442 Personal history of urinary calculi
CPT/HCPCS: 36415; 74022; 74176; 80053; 80306; 81000; 82150; 83690; 85007; 85027; 87491; 87591

== ENCOUNTER 2019-05-23 10:47 | Emergency (ER) | payer BC ==
[~2019-05-23] VITALS: Ht 182.8 cm; Wt 87.0 kg
[~2019-05-23 10:47] MED LIST changes: +CIPR-225 PO; +HYDR-87 PO; +ONDA4TAB11 PO
[2019-05-23] MEDS ORDERED: KETOROLAC 30 MG/ML VIAL IVP ONE (11:45)
[2019-05-23] MEDS ORDERED: NS IV 1000 ML 1,000 ML IV SCH (11:45)
[2019-05-23 11:46] LABS: BILIRUBIN,URINE NEGATIVE (NEGATIVE); CLARITY,URINE CLEAR; COLOR,URINE YELLOW; GLUCOSE, URINE (UA) NEGATIVE (NEGATIVE); KETONES,URINE NEGATIVE (NEGATIVE); LEUKOCYTE ESTERASE ,URINE NEGATIVE (NEGATIVE); NITRITE,URINE NEGATIVE (NEGATIVE); PROTEIN,URINE NEGATIVE (NEGATIVE)
[2019-05-23 12:04] LABS: BASOPHILS # (AUTO) 0.1 10^3/uL (0.0-0.1); BASOPHILS % (AUTO) 1 % (0-10); EOSINOPHILS # (AUTO) 0.3 10^3/uL (0.0-0.3); EOSINOPHILS % (AUTO) 2 % (0-10); HEMATOCRIT 42 % (40-54); LYMPHOCYTES # (AUTO) 2.1 X 10^3 (1.0-4.0); LYMPHOCYTES % (AUTO) 19 % (12-44); MEAN CORPUSCULAR HEMOGLOBIN 29 PG (25-34); MEAN CORPUSCULAR HGB CONC 36 G/DL (32-36); MEAN CORPUSCULAR VOLUME 83 FL (80-99); MEAN PLATELET VOLUME 10.2 FL (7.4-10.4); MONOCYTES # (AUTO) 0.7 X 10^3 (0.0-1.0); MONOCYTES % (AUTO) 7 % (0-12); NEUTROPHILS # (AUTO) 7.6 X 10^3 (1.8-7.8); NEUTROPHILS % (AUTO) 71 % (42-75); PLATELET COUNT 245 10^3/uL (130-400); RED CELL DISTRIBUTION WIDTH 13.1 % (10.0-14.5); WHITE BLOOD COUNT 10.7 10^3/uL (4.3-11.0)
[2019-05-23 12:09] LABS: BACTERIA,URINE NEGATIVE /HPF; SQUAMOUS EPITHELIAL CELL,UR RARE /HPF
[2019-05-23 12:24] LABS: ALANINE AMINOTRANSFERASE 28 U/L (0-55); ALBUMIN 5.1 GM/DL (3.2-4.5); ALKALINE PHOSPHATASE 67 U/L (40-136); BILIRUBIN,TOTAL 0.9 MG/DL (0.1-1.0); BUN/CREATININE RATIO 15; CALCIUM 10.2 MG/DL (8.5-10.1); CARBON DIOXIDE 26 MMOL/L (21-32); CHLORIDE 103 MMOL/L (98-107); CREATININE SERUM 1.22 MG/DL (0.60-1.30); GFR ESTIMATED > 60; GLUCOSE 98 MG/DL (70-105); POTASSIUM 4.4 MMOL/L (3.6-5.0); SODIUM 138 MMOL/L (135-145); TOTAL PROTEIN 7.5 GM/DL (6.4-8.2)
--- NOTE | 2019-05-23 12:31 | Diagnostic Imaging Report ---
INDICATION: Back pain, history of kidney stones. TECHNIQUE: Multiple contiguous axial images were obtained through the abdomen and pelvis without the use of intravenous contrast. Auto Exposure Controls were utilized during the CT exam to meet ALARA standards for radiation dose reduction. COMPARISON: Comparison made to prior study of 04/22/2019. FINDINGS: The visualized portions of the lung bases are clear. There were no pleural fluid collections. There is no free intraperitoneal air. The liver shows no focal lesions. Gallbladder appears unremarkable. The spleen, adrenals, and pancreas appear unremarkable without contrast. The left kidney appears normal. There is hydronephrosis on the right side with perinephric edema. There is a small 2 mm intrarenal stone in the lower pole of the right kidney. There is right hydronephrosis and hydroureter, down to the level of a stone at the right UVJ, which measures about 5 mm in long axis diameter. This stone has progressed only slightly compared to the previous study of 04/22/2019. There is no retroperitoneal mass or adenopathy. There is no ascites or abnormal fluid collection. Visualized bowel loops appear unremarkable, including the appendix. IMPRESSION: There is a persistent 5 mm stone in the right distal ureter near the UVJ, only slightly more distal than the prior study of 04/22/2019. There is hydronephrosis and hydroureter of the right side which appears more prominent than the previous study. There is a small intrarenal stone in the lower pole of the right kidney. There is no other abnormal finding. Dictated by: Dictated on workstation # [id number]
--- NOTE | 2019-05-23 12:39 | Diagnostic Imaging Report ---
INDICATION: Flank pain and abdominal pain. FINDINGS: The bowel gas pattern is nonspecific. There is a 5 mm calcification near the right UVJ. There are no other abnormal calcifications. Osseous structures are unremarkable. IMPRESSION: 5 mm stone in the pelvis near the right UVJ. Nonspecific bowel gas pattern. Dictated by: Dictated on workstation # [id number]
[2019-05-23] MEDS ORDERED: SULF1TAB35 PO (12:41)
[2019-05-23] MEDS ORDERED: ACHD5005 PO (12:41)
--- NOTE | 2019-05-23 12:41 | ED GU-Male ---
General Chief Complaint: - Urinary Stated Complaint: BACK PAIN/URINATING PAIN Nursing Triage Note: Pt to ED with c/o R sided flank and abdominal pain. Pt reports hx of kidney stone and reports this is the same feeling. Pt reports symptoms have worsened today. Pt reports slight burning with urination. Source: patient Exam Limitations: no limitations History of Present Illness Date Seen by Provider: May 23, 2019 Time Seen by Provider: 11:34 Initial Comments 23-year-old male who presents to emergency room with complaints of right flank pain that radiates to his abdomen and back. He reports he's had history of his kidney stones and reports similar pain. He reports the pain became worse today and had some slight burning with urination. Timing/Duration: this morning Location: right flank Radiation: groin, other (back) Associated Symptoms: dysuria Allergies and Home Medications Allergies Coded Allergies: No Known Drug Allergies (Unverified , 08/15/17) Home Medications Ciprofloxacin HCl 500 Mg Tablet, 500 MG PO BID Prescribed by: ZULEYMA WALTERS on 04/22/19347 Hydrocodone Bit/Acetaminophen 1 Tab Tab, 1 EACH PO Q4-6HR PRN for PAIN-MODERATE Prescribed by: OSVALDO BILL on 05/23/19 1241 Hydrocodone/Ibuprofen 1 Each Tablet, 1 EACH PO Q4H PRN for PAIN-MODERATE Prescribed by: ZULEYMA WALTERS on 04/22/19 034 Ondansetron 4 Mg Tab.rapdis, 4 MG PO Q4H Prescribed by: ZULEYMA WALTERS on 04/22/19 034 Sulfamethoxazole/Trimethoprim 1 Each Tablet, 1 EACH PO BID Prescribed by: OSVALDO BILL on 05/23/19 1241 Tamsulosin HCl 0.4 Mg Cap, 0.4 MG PO DAILY Prescribed by: ZULEYMA WALTRES on 04/22/19 0348 Patient Home Medication List Home Medication List Reviewed: Yes Review of Systems Review of Systems Constitutional: see HPI; No chills, No fever Gastrointestinal: see HPI, other (flank pain) Genitourinary: see HPI, burning Musculoskeletal: see HPI, back pain All Other Systemes Reviewed Negative Unless Noted: Yes Past Afljmvi-Diqyjc-Vbecpd Hx Past Med/Social Hx: Reviewed Nursing Past Med/Soc Hx Patient Social History Alcohol Use: Denies Use Recreational Drug Use: No Drug of Choice: DENIES, BUT UDS + FOR THC Smoking Status: Current Everyday Smoker Type Used: Cigarettes 2nd Hand Smoke Exposure: No Recent Foreign Travel: No Contact w/Someone Who Travel: No Recent Infectious Disease Expo: No Recent Hopitalizations: No Immunizations Up To Date Tetanus Booster (TDap): Unknown Seasonal Allergies Seasonal Allergies: No Past Medical History Surgeries: Yes Tonsillectomy Respiratory: No Cardiac: No Neurological: No Genitourinary: Yes Kidney Stones Gastrointestinal: No Musculoskeletal: No Endocrine: No HEENT: Yes (S/P TONSILLECTOMY) Tonsilitis Cancer: No Psychosocial: No Integumentary: No Blood Disorders: No Family Medical History Reviewed Nursing Family Hx Physical Exam Vital Signs Vital Signs - First Documented 05/23/19 11:25 Temp 36.8 Pulse 68 Resp 14 B/P (MAP) 145/94 (111) Pulse Ox 98 O2 Delivery Room Air Capillary Refill : Less Than 3 Seconds Height, Weight, BMI Height: 6'" Weight: 168lbs. oz. 76.068854pg; 26.00 BMI Method:Stated General Appearance: WD/WN, no apparent distress Cardiovascular: normal peripheral pulses, regular rate, rhythm, no edema, no gallop, no JVD, no murmur Respiratory: chest non-tender, lungs clear, normal breath sounds, no respiratory distress, no accessory muscle use Gastrointestinal: normal bowel sounds, non tender, soft, no organomegaly, no pulsatile mass Back: normal inspection, no CVA tenderness, no vertebral tenderness Neurologic/Psychiatric: alert, normal mood/affect, oriented x 3 Skin: normal color, warm/dry Progress/Results/Core Measures Suspected Sepsis Recent Fever Within 48 Hours: No Infection Criteria Present: None New/Unexplained Altered Menta: No Sepsis Screen: No Definite Risk SIRS Temperature: Pulse: 68 Respiratory Rate: 14 Laboratory Tests 05/23/19 11:55: White Blood Count 10.7 Blood Pressure 145 /94 Mean: 111 Laboratory Tests 05/23/19 11:55: Creatinine 1.22, Platelet Count 245, Total Bilirubin 0.9 Results/Orders Lab Results Laboratory Tests Test 05/23/19 11:25 05/23/19 11:55 Range/Units Urine Color YELLOW Urine Clarity CLEAR Urine pH 6.0 5-9 Urine Specific [place] <=1.005 1.016-1.022 Urine Protein NEGATIVE NEGATIVE Urine Glucose (UA) NEGATIVE NEGATIVE Urine Ketones NEGATIVE NEGATIVE Urine Nitrite NEGATIVE NEGATIVE Urine Bilirubin NEGATIVE NEGATIVE Urine Urobilinogen 0.2 < = 1.0 MG/DL Urine Leukocyte Esterase NEGATIVE NEGATIVE Urine RBC (Auto) TRACE-I NEGATIVE Urine RBC NONE /HPF Urine WBC NONE /HPF Urine Squamous Epithelial Cells RARE /HPF Urine Crystals NONE /LPF Urine Bacteria NEGATIVE /HPF Urine Casts NONE /LPF Urine Mucus NEGATIVE /LPF Urine Culture Indicated NO White Blood Count 10.7 4.3-11.0 10^3/uL Red Blood Count 5.12 4.35-5.85 10^6/uL Hemoglobin 15.0 13.3-17.7 G/DL Hematocrit 42 40-54 % Mean Corpuscular Volume 83 80-99 FL Mean Corpuscular Hemoglobin 29 25-34 PG Mean Corpuscular Hemoglobin Concent 36 32-36 G/DL Red Cell Distribution Width 13.1 10.0-14.5 % Platelet Count 245 130-400 10^3/uL Mean Platelet Volume 10.2 7.4-10.4 FL Neutrophils (%) (Auto) 71 42-75 % Lymphocytes (%) (Auto) 19 12-44 % Monocytes (%) (Auto) 7 0-12 % Eosinophils (%) (Auto) 2 0-10 % Basophils (%) (Auto) 1 0-10 % Neutrophils # (Auto) 7.6 1.8-7.8 X 10^3 Lymphocytes # (Auto) 2.1 1.0-4.0 X 10^3 Monocytes # (Auto) 0.7 0.0-1.0 X 10^3 Eosinophils # (Auto) 0.3 0.0-0.3 10^3/uL Basophils # (Auto) 0.1 0.0-0.1 10^3/uL Sodium Level 138 135-145 MMOL/L Potassium Level 4.4 3.6-5.0 MMOL/L Chloride Level 103 98-107 MMOL/L Carbon Dioxide Level 26 21-32 MMOL/L Anion Gap 9 5-14 MMOL/L Blood Urea Nitrogen 18 7-18 MG/DL Creatinine 1.22 0.60-1.30 MG/DL Estimat Glomerular Filtration Rate > 60 BUN/Creatinine Ratio 15 Glucose Level 98 70-105 MG/DL Calcium Level 10.2 H 8.5-10.1 MG/DL Corrected Calcium 8.5-10.1 MG/DL Total Bilirubin 0.9 0.1-1.0 MG/DL Aspartate Amino Transf (AST/SGOT) 19 5-34 U/L Alanine Aminotransferase (ALT/SGPT) 28 0-55 U/L Alkaline Phosphatase 67 40-136 U/L Total Protein 7.5 6.4-8.2 GM/DL Albumin 5.1 H 3.2-4.5 GM/DL My Orders Orders - OSVALDO BILL Ua Culture If Indicated (05/23/19 11:34) Ct Abd/Pelvis Wo(Kidney Stone) (05/23/19 11:40) Abdomen/Kub 1[place] (05/23/19 11:40) Ed Iv/Invasive Line Start (05/23/19 11:40) Cbc With Automated Diff (05/23/19 11:40) Comprehensive Metabolic Panel (05/23/19 11:40) Ketorolac Injection (Toradol Injection) (05/23/19 11:45) Ns Iv 1000 Ml (Sodium Chloride 0.9%) (05/23/19 11:45) Medications Given in ED Vital Signs/I&O 05/23/19 05/23/19 11:25 12:54 Temp 36.8 36.8 Pulse 68 68 Resp 14 14 B/P (MAP) 145/94 (111) 145/94 (111) Pulse Ox 98 98 O2 Delivery Room Air Room Air Capillary Refill : Less Than 3 Seconds Blood Pressure Mean: 111 POS Progress Note : Time: 12:39 Progress Note I have seen and evaluated the patient. I've informed him of his laboratory and imaging studies. He was instructed to strain all urine and follow-up with Dr. Cintron for evaluation of his kidney stones. He agrees with plan of care, plans for discharge, return precautions were given. Departure Impression Primary Impression: Right ureteral stone Additional Impression: Kidney stone on right side Disposition: 01 HOME, SELF-CARE Condition: Stable/Unchanged Departure-Patient Inst. Decision time for Depature: 12:39 Referrals: NO,LOCAL PHYSICIAN (PCP) Primary Care Physician CARMENZA CINTRON MD Patient Instructions: Kidney Stones in Adults Add. Discharge Instructions: Call Dr. Cintron's office to schedule appointment for follow-up. Take medication as directed. You may use ibuprofen and Tylenol in addition to your hydrocodone. Do not take more than 4000 mg of Tylenol per day. Be sure to drink plenty of fluids to stay hydrated. Strain all of your urine and if you should pass the stone take it with you to your follow-up appointment. Return back to the emergency room for worsening symptoms or concerns as needed. All discharge instructions reviewed with patient and/or family. Voiced understanding. Scripts Sulfamethoxazole/Trimethoprim (Bactrim Ds Tablet) 1 Each Tablet 1 EACH PO BID for 7 Days, #14 TAB Prov: OSVALDO BILL 05/23/19 Hydrocodone Bit/Acetaminophen (Hydrocodone/Acetaminophen 5/325mg Tablet) 1 Tab Tab 1 EACH PO Q4-6HR PRN for PAIN-MODERATE MDD 10 for 3 Days, #20 TAB Prov: OSVALDO BILL 05/23/19 OSVALDO BILL May 23, 2019 12:41 POS
[2019-05-23 12:54] VITALS: BP 145/94
== END 2019-05-23 12:54 | disposition home or self-care (01) ==
LOC: EDUNIT# 10:47 → ER 10:49
DX: N13.2 Hydronephrosis with renal and ureteral calculous obstruction (principal); F17.210 Nicotine dependence, cigarettes, uncomplicated; Z90.89 Acquired absence of other organs
CPT/HCPCS: 36415; 74018; 74176; 80053; 81000; 85025